=== PATIENT | male | born 1950 | race Two or more races ===

== ENCOUNTER 2020-07-07 20:53 | Emergency (ER) | payer BC ==
[~2020-07-07] VITALS: Ht 170.2 cm; Wt 100.0 kg
[2020-07-07] MEDS ORDERED: NOREPINEPHRINE 8MG/250ML PMX 250 ML IV ONE (21:15)
[2020-07-07] MEDS ORDERED: NOREPINEPHRINE 8 MG in DEXTROSE 5% WATER 250 ML IV PRN (21:30)
== END 2020-07-07 21:10 | disposition expired ==
LOC: ER 20:53
DX: I46.9 Cardiac arrest, cause unspecified (principal); U07.1 COVID-19; E11.65 Type 2 diabetes mellitus with hyperglycemia; F19.10 Other psychoactive substance abuse, uncomplicated
CPT/HCPCS: 31500; 92950; 99285; 99291